=== PATIENT | female | born 1985 | race Caucasian/White ===

== ENCOUNTER 2025-03-20 09:44 | Emergency (ER) | payer BC ==
--- OUTSIDE RECORDS SUMMARY | 2025-03-20 09:48 | XMS REPORT | Continuity of Care Document ---
Author Name Unknown Address [address] [place] [address] Organization [facility] Address [address] [place] [address] Care Team Providers Care A/C Technician Name Role Phone NITO BARON Attending Clinician Unava ilable Payers Payer Name Policy Type Policy Number Effective Date Expirati on Date Source [place] [id number] 2021 00:00:00 Encounters Start Date/Time End Date/Time Encounter Type Admission Type Attending Clinicians Care Facility Care Department Encounter ID Source 2023-03-10 00:10:03 Outpatient [facility] [id number] [facility] 2024-11-15 04:06:00 2024-11-15 04:06:00 Emergency [facility] [id number] [facility] 2022-09-28 11:26:00 2022-09-29 20:48:00 Emergency E NITO BARON [facility] [id number] [facility]
[2025-03-20] MEDS ORDERED: LORazepam 2 MG/ML VIAL ONE (10:20)
[2025-03-20] MEDS ORDERED: DIPHENHYDRAMINE 50 MG/ML VIAL ONE ×2 (10:20→11:42)
[2025-03-20] MEDS ORDERED: HALOPERIDOL LACT 5 MG/ML INJ ONE (12:20)
--- NOTE | 2025-03-20 13:24 | EDPHYS ---
Physician Documentation [facility] Name: Maki Taylor Age: 39 yrs Sex: Female : 1985 Arrival Date: 03/20/2025 Time: 09:44 Bed 20 Private MD: ED Physician Arias Rios HPI: 03/20 10:17 This 39 yrs old Female presents to ER via Unassigned with complaints of Psych Problem - rn Not sleeping. 10:17 The patient presents to the emergency department with anxiety, Manic episode. Onset: rn The symptoms/episode began/occurred 2 day(s) ago. Spouse and patient report not sleeping for 2 days. He feels that there is a manic episode happening. Patient with bipolar and depression. Is compliant with her medication. He states that sometimes she gets like this and gets medication in the ER to help her sleep and when she wakes up she resets. Denies any suicidal or homicidal ideation. No fever or chills. No medical complaints otherwise.. 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 - Infectious Disease History:: Denies. - Family history:: not pertinent. - Social history:: Smoking status: Reported history of juuling and/or vaping. - Hospitalizations: : No recent hospitalization is reported. ROS: 10:17 Constitutional: Negative for fever, chills, and weight loss, Cardiovascular: Negative rn for chest pain, palpitations, and edema, Respiratory: Negative for shortness of breath, cough, wheezing, and pleuritic chest pain, Abdomen/GI: Negative for abdominal pain, nausea, vomiting, diarrhea, and constipation, MS/Extremity: Negative for injury and deformity, Skin: Negative for injury, rash, and discoloration, Neuro: Negative for headache, weakness, numbness, tingling, and seizure, Psych: Positive for anxiety and inability to sleep. Negative for suicidal ideation or homicidal ideation Exam: 10:17 Constitutional: This is a well developed, well nourished patient who is awake, alert, rn appears anxious and is hyperventilating Respiratory: Mild tachypnea, appears anxious and hyperventilating Neuro: Awake and alert, GCS 15 Vital Signs: 09:53 BP 195 / 128; Pulse 100; Resp 24 S; Temp 98(TE); Pulse Ox 98% on R/A; Weight 149.69 kg aa5 (R); Height 5 ft. 5 in. (R); 10:42 Pulse 104; Resp 16 S; Pulse Ox 99% on R/A; aa5 11:12 BP 162 / 115; Pulse 102; Resp 16 S; Pulse Ox 99% on R/A; aa5 13:00 BP 157 / 102; Pulse 99; Resp 16; Pulse Ox 100% ; me1 13:48 BP 148 / 101; Pulse 100; Resp 17; Temp 98.4; Pulse Ox 100% ; me1 09:53 Body Mass Index 54.91 (149.69 kg, 165.1 cm) aa5 MDM: 09:56 Medical Screening Exam initiated rn 13:22 Differential diagnosis: depression, Manic episode, anxiety. Data reviewed: vital signs, rn nurses notes, and as a result, I will discharge patient. Counseling: I had a detailed discussion with the patient and/or guardian regarding the historical points, exam findings, and any diagnostic results supporting the discharge/admit diagnosis, the need for outpatient follow up, to return to the emergency department if symptoms worsen or persist or if there are any questions or concerns that arise at home. Response to treatment: the patient's symptoms have markedly improved after treatment, Patient sleeping, has been as happy with her current state and would like to take her home to rest. Will make a follow-up appointment with psychiatrist, and as a result, I will discharge patient. Special discussion: I discussed with the patient/guardian in detail that at this point there is no indication for admission to the hospital. It is understood, however, that if the symptoms persist or worsen the patient needs to return immediately for re-evaluation. 03/20 10:05 Order name: IV Start; Complete Time: : rn Administered Medications: 10:20 Drug: Ativan IVP 1 mg IVP once Route: IVP; Site: right hand; aa5 10:41 Follow up: Response: No adverse reaction aa5 10:20 Drug: diphenhydrAMINE IVP 25 mg IVP once Route: IVP; Site: right hand; aa5 10:40 Follow up: Response: No adverse reaction aa5 10:53 Drug: Ativan IVP 1 mg IVP once Route: IVP; Site: right hand; aa5 11:00 Follow up: Response: No adverse reaction aa5 11:51 Drug: diphenhydrAMINE IVP 25 mg IVP once Route: IVP; Site: right hand; aa5 12:00 Follow up: Response: No adverse reaction aa5 12:23 Drug: Haloperidol IVP 2.5 mg IVP once Route: IVP; Site: right hand; me1 13:50 Follow up: Response: No adverse reaction; Marked relief of symptoms; Anxiety decreased me1 Disposition Summary: 03/20/25 13:23 Discharge Ordered Notes: Location: Home rn Problem: new rn Symptoms: have improved rn Condition: Stable rn Diagnosis - Bipolar disorder, unspecified rn - Insomnia rn Followup: rn - With: Private Physician - When: As needed - Reason: Recheck today's complaints, Re-evaluation by your physician Discharge Instructions: - Discharge Summary Sheet rn - Natalie rn - Managing Bipolar Disorder rn Forms: - Medication Reconciliation Form rn - Antibiotic consumer attorney - Prescription Opioid Use rn - Patient Portal Instructions rn - Leadership Thank You Letter rn Signatures: Arias Rios MD MD rn Calderon, Audri RN RN aa5 Janis Holt RN RN or1
--- NOTE | 2025-03-20 13:24 | ER ---
Nurse's Notes [facility] Name: Maki Taylor Age: 39 yrs Sex: Female : 1985 Arrival Date: 03/20/2025 Time: 09:44 Bed 20 Private MD: Diagnosis: Bipolar disorder, unspecified;Insomnia Presentation: 03/20 09:53 Acuity: BEATRIS 2 aa5 09:53 Risk Assessment: Do you want to hurt yourself or someone else? Patient reports no aa5 desire to harm self or others. 09:53 Chief complaint: Patient states: "I am having a mental day, I am not sleeping". aa5 09:53 Coronavirus screen: At this time, the client does not indicate any symptoms associated aa5 with coronavirus-19. Ebola Screen: Patient denies travel to an Ebola-affected area in the 21 days before illness onset. Initial Sepsis Screen: Does the patient meet any 2 criteria? HR > 90 bpm. Does the patient have a suspected source of infection? No. Patient's initial sepsis screen is negative. Onset of symptoms was March 17, 2025. 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 - Infectious Disease History:: Denies. - Family history:: not pertinent. - Social history:: Smoking status: Reported history of juuling and/or vaping. - Hospitalizations: : No recent hospitalization is reported. Screenin:53 [facility] ED Fall Risk Assessment (Adult) History of falling in the last 3 months, aa5 including since admission No falls in past 3 months (0 pts) Confusion or Disorientation No (0 pts) Intoxicated or Sedated No (0 pts) Impaired Gait No (0 pts) Mobility Assist Device Used No (0 pt) Altered Elimination No (0 pt) Score/Fall Risk Level 0 - 2 = Low Risk Oriented to surroundings, Maintained a safe environment, Educated pt \\T\\ family on fall prevention, incl call for assistance when getting out of bed, Assessed \\T\\ reinforced patient's understanding of fall precautions. Abuse screen: Denies threats or abuse. Nutritional screening: No deficits noted. Tuberculosis screening: No symptoms or risk factors identified. Assessment: 09:53 General: Appears uncomfortable, Behavior is anxious, Pt's states "she has aa5 periods like this where she doesn't sleep and she needs help sleeping". Pt reports not sleeping, pt states "I don't remember the last time I slept", pt's states "she slept a couple of hours the night before last" . Pain: Denies pain. Neuro: Level of Consciousness is awake, alert, obeys commands, Oriented to person, place, time, situation. Cardiovascular: Patient's skin is warm and dry. Respiratory: Airway is patent Respiratory effort is even, unlabored, Respiratory pattern is regular, symmetrical. GI: No signs and/or symptoms were reported involving the gastrointestinal system. : No signs and/or symptoms were reported regarding the genitourinary system. EENT: No signs and/or symptoms were reported regarding the EENT system. Derm: Skin is pink, warm \\T\\ dry. Musculoskeletal: Range of motion: intact in all extremities. 10:41 Reassessment: Pt appears calm now, pt states "I think it's helping me sleep now". . aa5 10:53 Reassessment: Patient is alert, oriented x 3, equal unlabored respirations, skin aa5 warm/dry/pink. Pt appears calm, remains awake, pt requesting more medication, MD was notified.. Vital Signs: 09:53 BP 195 / 128; Pulse 100; Resp 24 S; Temp 98(TE); Pulse Ox 98% on R/A; Weight 149.69 kg aa5 (R); Height 5 ft. 5 in. (R); 10:42 Pulse 104; Resp 16 S; Pulse Ox 99% on R/A; aa5 11:12 BP 162 / 115; Pulse 102; Resp 16 S; Pulse Ox 99% on R/A; aa5 13:00 BP 157 / 102; Pulse 99; Resp 16; Pulse Ox 100% ; me1 13:48 BP 148 / 101; Pulse 100; Resp 17; Temp 98.4; Pulse Ox 100% ; me1 09:53 Body Mass Index 54.91 (149.69 kg, 165.1 cm) aa5 ED Course: 09:51 Patient arrived in ED. cj3 09:53 Patient has correct armband on for positive identification. Bed in low position. Call aa5 light in reach. Side rails up X2. Adult w/ patient. Pulse ox on. NIBP on. 09:53 Arm band placed on. aa5 09:56 Arias Rios MD is Attending Physician. rn 09:56 N[facility] Diaz F[facility]-C [facility] kb 09:57 Susy Washburn, JOSEF is Primary Nurse. aa5 10:12 Triage completed. aa5 10:18 Inserted saline lock: 20 gauge in right hand, using aseptic technique. Flushed with 10 aa5 mL NS. 10:45 No provider procedures requiring assistance completed. aa5 12:00 Report given to JOSEF Bruce. aa5 13:48 IV discontinued, intact, bleeding controlled, No redness/swelling at site. Pressure me1 dressing applied. 13:48 Provided Education on: POC. Verbalized understanding.. me1 Administered Medications: 10:20 Drug: Ativan IVP 1 mg IVP once Route: IVP; Site: right hand; aa5 10:41 Follow up: Response: No adverse reaction aa5 10:20 Drug: diphenhydrAMINE IVP 25 mg IVP once Route: IVP; Site: right hand; aa5 10:40 Follow up: Response: No adverse reaction aa5 10:53 Drug: Ativan IVP 1 mg IVP once Route: IVP; Site: right hand; aa5 11:00 Follow up: Response: No adverse reaction aa5 11:51 Drug: diphenhydrAMINE IVP 25 mg IVP once Route: IVP; Site: right hand; aa5 12:00 Follow up: Response: No adverse reaction aa5 12:23 Drug: Haloperidol IVP 2.5 mg IVP once Route: IVP; Site: right hand; me1 13:50 Follow up: Response: No adverse reaction; Marked relief of symptoms; Anxiety decreased me1 Medication: 10:43 VIS not applicable for this client. aa5 Outcome: 13:23 Discharge ordered by . rn 13:48 Discharged to home via wheelchair, with significant other, me1 13:48 Condition: stable 13:48 Discharge instructions given to patient, significant other, Instructed on discharge instructions, follow up and referral plans. Demonstrated understanding of instructions, follow-up care, 13:50 Patient left the ED. me1 Signatures: Nelia Diaz, APARTMENT MANAGER-C APARTMENT MANAGER-Ckb Arias Rios MD MD rn Calderon, Susy RN RN aa5 Janis Holt RN RN me1 Janene Rizo cj3 Corrections: (The following items were deleted from the chart) 11:05 10:55 Reassessment: Patient is alert, oriented x 3, equal unlabored respirations, skin aa5 warm/dry/pink. Pt appears calm, remains awake, pt requesting more medication, MD was notified.. aa5
[2025-03-22 17:59] VITALS: O2SAT 100
[2025-03-22 18:01] VITALS: BP 148/101; TEMP 98.4
== END 2025-03-20 13:50 | disposition home or self-care (01) ==
LOC: EDBD 09:44 → ER 09:44
DX: F31.9 Bipolar disorder, unspecified (principal)
CPT/HCPCS: 96375; 96374; 99284; J1630; J1200 ×2

== ENCOUNTER 2025-03-21 09:24 | Emergency (ER) | payer BC ==
--- NOTE | 2025-03-21 09:45 | EDPHYS ---
Physician Documentation [facility] Name: Maki Taylor Age: 39 yrs Sex: Female : 1985 Arrival Date: 03/21/2025 Time: 09:24 Bed 13 Private MD: JESSICA Physician Calixto Londono HPI: 03/21 09:35 This 39 yrs old Female presents to ER via Ambulatory with complaints of Psych Problem- kb Not Sleeping. 09:35 Pt is a 39 year old female who presents for insomnia. Spouse states pt hasn't really kb slept in 3 days. States they were here yesterday and she was given benadryl and ativan which didn't help, then was given Haldol which allowed her to sleep for 2-3 hours, but then she was back up and couldn't get back to sleep. states her cousin moved and he believes that is what triggered this episode. This has happened a few times in the past and normally she "resets" after getting 8-9 hours of sleep. Pt is a patient of [facility] and the plan is to call them first thing in the morning. Came here because they aren't open during the weekend. Denies homicidal or suicidal ideations. 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 - Social history:: Smoking status: Reported history of juuling and/or vaping. ROS: 09:35 Constitutional: As per HPI kb Exam: 09:35 Constitutional: This is a well developed, well nourished patient who is awake, alert, kb and in no acute distress. Head/Face: Normocephalic, atraumatic. ENT: Moist Mucous membranes Cardiovascular: Regular rate Respiratory: Respirations even and unlabored. No increased work of breathing. Talking in full sentences Skin: Warm, dry with normal turgor. Normal color. MS/ Extremity: Pulses equal, no cyanosis. Neurovascular intact. Full, normal range of motion. Neuro: Awake and alert, GCS 15, oriented to person, place, time, and situation. Vital Signs: 09:31 BP 165 / 118; Pulse 108; Resp 17; Temp 98.9; Pulse Ox 98% ; Pain 0/10; ss 09:33 Weight 149.69 kg; Height 5 ft. 5 in. ; ss 09:33 Body Mass Index 54.91 (149.69 kg, 165.1 cm) ss 09:31 Pain Scale: Adult ss MDM: 09:27 Medical Screening Exam initiated kb 09:43 Data reviewed: vital signs, nurses notes. kb 09:43 Differential diagnosis: psychosis, insomnia, anxiety. Management of patient was kb discussed with the following: Dr Londono, recommends ativan 2mg and geodon 20mg PO, discharge home to sleep. Discussed with pt and spouse, both in agreement with plan. Historians other than the Patient: Spouse/Significant Other: spouse. Counseling: I had a detailed discussion with the patient and/or guardian regarding the historical points, exam findings, and any diagnostic results supporting the discharge/admit diagnosis, the need for outpatient follow up, a psychiatrist, to return to the emergency department if symptoms worsen or persist or if there are any questions or concerns that arise at home. Administered Medications: 09:58 Drug: LORazepam PO 2 mg PO once Route: PO; iw 10:22 Drug: Geodon 20 mg PO once; give with food (meal/snack) Route: PO; iw Disposition Summary: 03/21/25 09:44 Discharge Ordered Notes: Location: Home kb Condition: Stable kb Diagnosis - Insomnia due to other mental disorder kb Followup: kb - With: Emergency Department - When: As needed - Reason: Worsening of condition Followup: kb - With: Private Physician - When: 2 - 3 days - Reason: Recheck today's complaints, Continuance of care, Re-evaluation by your physician Discharge Instructions: - Discharge Summary Sheet kb - Insomnia kb Forms: - Medication Reconciliation Form kb - Antibiotic Education kb - Prescription Opioid Use kb - Patient Portal Instructions kb - Leadership Thank You Letter kb Signatures: Nelia Diaz FNP-C FRANCISCO-Kindra Pichardo, JOSEF RN iw Kailey Latham RN RN ss Corrections: (The following items were deleted from the chart) 09:52 09:43 Management of patient was discussed with the following: Dr Londono, recommends kb ativan 2mg and geodon 20mg PO, discharge home to sleep. kb 09:54 09:35 Pt is a 39 year old female who presents for insomnia. Spouse states pt hasn't kb really slept in 3 days. States they were here yesterday and she was given benadryl and ativan which didn't help, then was given Haldol which allowed her to sleep for 2-3 hours, but then she was back up and couldn't get back to sleep. states her cousin moved and he believes that is what triggered this episode. This has happened a few times in the past and normally she "resets" after getting 8-9 hours of sleep. Pt is a patient of [facility] and the plan is to call them first thing in the morning. Came here because they aren't open during the weekend. . kb
--- NOTE | 2025-03-21 09:45 | ER ---
Nurse's Notes [facility] Name: Maki Taylor Age: 39 yrs Sex: Female : 1985 Arrival Date: 03/21/2025 Time: 09:24 Bed 13 Private MD: Diagnosis: Insomnia due to other mental disorder Presentation: 03/21 09:31 Chief complaint: Spouse and/or significant other states: "She just isn't sleeping. We ss were here last night for the same thing. It helped after they gave her Haldol, but didn't sleep very long.". Coronavirus screen: Client denies travel out of the [place] in the last 14 days. Ebola Screen: Patient denies exposure to infectious person. Patient denies travel to an Ebola-affected area in the 21 days before illness onset. Initial Sepsis Screen: Does the patient meet any 2 criteria? No. Patient's initial sepsis screen is negative. Does the patient have a suspected source of infection? No. Patient's initial sepsis screen is negative. Risk Assessment: Do you want to hurt yourself or someone else? Patient reports no desire to harm self or others. Onset of symptoms was March 18, 2025. 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 - Social history:: Smoking status: Reported history of juuling and/or vaping. Screenin:38 Abuse screen: Denies threats or abuse. Denies injuries from another. Nutritional ss screening: No deficits noted. Tuberculosis screening: Never had TB. 10:22 [facility] ED Fall Risk Assessment (Adult) History of falling in the last 3 months, iw including since admission No falls in past 3 months (0 pts) Confusion or Disorientation No (0 pts) Intoxicated or Sedated No (0 pts) Impaired Gait No (0 pts) Mobility Assist Device Used No (0 pt) Altered Elimination No (0 pt) Score/Fall Risk Level 0 - 2 = Low Risk Oriented to surroundings, Maintained a safe environment. Assessment: 09:38 Reassessment: states, "This has happened before and after 8-9 hours of sleep, ss she wakes up and snaps out of it.". Vital Signs: 09:31 BP 165 / 118; Pulse 108; Resp 17; Temp 98.9; Pulse Ox 98% ; Pain 0/10; ss 09:33 Weight 149.69 kg; Height 5 ft. 5 in. ; ss 09:33 Body Mass Index 54.91 (149.69 kg, 165.1 cm) ss 09:31 Pain Scale: Adult ss ED Course: 09:27 Patient arrived in ED. cj3 09:27 Nelia Diaz FNP-C [facility]. kb 09:27 Calixto Londono MD is Attending Physician. kb 09:33 Triage completed. ss 09:33 Arm band placed on right wrist. ss 09:38 Patient has correct armband on for positive identification. ss 09:45 Kindra Bernabe, RN is Primary Nurse. iw Administered Medications: 09:58 Drug: LORazepam PO 2 mg PO once Route: PO; iw 10:22 Drug: Geodon 20 mg PO once; give with food (meal/snack) Route: PO; iw Medication: 09:38 VIS not applicable for this client. ss Outcome: 09:44 Discharge ordered by . kb 10:22 Discharged to home ambulatory, with family, iw 10:22 Condition: good 10:22 Discharge instructions given to patient, family, Instructed on discharge instructions, follow up and referral plans. Demonstrated understanding of instructions, follow-up care, 10:23 Patient left the ED. iw Signatures: Nelia Diaz FNP-C FNP-Kindra Pichardo, RN RN Kailey Latham RN RN Janene Rizo cj3
[2025-03-21] MEDS ORDERED: LORAZEPAM 1 MG TABLET ONE (09:52)
[2025-03-21] MEDS ORDERED: ZIPRASIDONE 20 MG CAP PO ONE (10:00)
[2025-03-23 03:18] VITALS: BP 165/118; TEMP 98.9; O2SAT 98
== END 2025-03-21 10:23 | disposition home or self-care (01) ==
LOC: ER 09:24
DX: F51.05 Insomnia due to other mental disorder (principal)
CPT/HCPCS: 99283

== ENCOUNTER 2025-03-21 17:10 | Emergency (ER) | payer BC ==
--- NOTE | 2025-03-21 18:07 | ER ---
Nurse's Notes [facility] Name: Maki Taylor Age: 39 yrs Sex: Female : 1985 Arrival Date: 03/21/2025 Time: 17:10 Bed 10 Private MD: Diagnosis: Manic episode Presentation: 03/21 17:44 Chief complaint: Patient states: manic state since . Has come several times for mi1 something to help her sleep but when she gets home she is unable to go back to sleep. Crying in triage. Coronavirus screen: Vaccine status: Patient reports receiving the 2nd dose of the covid vaccine. Ebola Screen: No symptoms or risks identified at this time. Initial Sepsis Screen: Does the patient meet any 2 criteria? HR > 90 bpm. No. Patient's initial sepsis screen is negative. Does the patient have a suspected source of infection? No. Patient's initial sepsis screen is negative. Risk Assessment: Do you want to hurt yourself or someone else? Patient reports no desire to harm self or others. Onset of symptoms was March 18, 2025. 17:44 Method Of [place] [facility] [place] Acuity: BEATRIS 4 me1 Triage Assessment: 19:50 General: Appears comfortable, Behavior is cooperative, anxious. Pain: Denies pain. ha1 Neuro: Level of Consciousness is awake, alert, obeys commands, Oriented to person, place, time, situation, Reports NOT ABLE TO SLEEP FOR FOUR DAYS . Cardiovascular: Capillary refill < 3 seconds Patient's skin is warm and dry. Respiratory: Airway is patent Respiratory effort is even, unlabored, Respiratory pattern is regular, symmetrical. GI: No signs and/or symptoms were reported involving the gastrointestinal system. Abdomen is round non-distended, obese. : No signs and/or symptoms were reported regarding the genitourinary system. Derm: No signs and/or symptoms reported regarding the dermatologic system. Skin is pink, warm \\T\\ dry. Musculoskeletal: Circulation, motion, and sensation intact. Range of motion: intact in all extremities. 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 - Infectious Disease History:: Denies. - Social history:: Smoking status: Reported history of juuling and/or vaping. Screenin:40 [facility] ED Fall Risk Assessment (Adult) History of falling in the last 3 months, ha1 including since admission No falls in past 3 months (0 pts) Confusion or Disorientation No (0 pts) Intoxicated or Sedated No (0 pts) Impaired Gait No (0 pts) Mobility Assist Device Used No (0 pt) Altered Elimination No (0 pt) Score/Fall Risk Level 0 - 2 = Low Risk Oriented to surroundings, Maintained a safe environment, Educated pt \\T\\ family on fall prevention, incl call for assistance when getting out of bed, Hourly rounding (assess needs \\T\\ fall precautionary measures) done. Abuse screen: Denies threats or abuse. Denies injuries from another. Nutritional screening: No deficits noted. Tuberculosis screening: No symptoms or risk factors identified. Assessment: 19:45 Reassessment: SEE TRIAGE ASSESSMENT. ha1 21:10 General: Appears uncomfortable, Behavior is anxious, restless. ha1 22:00 Reassessment: Patient and/or family updated on plan of care and expected duration. Pain ha1 level reassessed. 23:00 Reassessment: Patient and/or family updated on plan of care and expected duration. Pain ha1 level reassessed. 03/22 00:00 Reassessment: Patient and/or family updated on plan of care and expected duration. Pain ha1 level reassessed. Patient is alert, oriented x 3, equal unlabored respirations, skin warm/dry/pink. 03:00 Reassessment: eyes closed. Respiratory: Airway is patent Respiratory effort is even, ha1 unlabored, Respiratory pattern is regular, symmetrical. 04:20 Reassessment: eyes closed. Respiratory: Airway is patent Respiratory effort is even, ha1 unlabored, Respiratory pattern is regular, symmetrical. 05:10 Reassessment: PATIENT STATES " I FEEL BETTER AFTER SLEEPING, I WANT TO GO HOME ". ha1 05:20 Reassessment: AWAKE REQUESTING TO BE DISCHARGE. DENIES SUICIDAL IDEATIONS. ha1 05:40 General: PROVIDED EDUCATION ON PENDING TRANSFER . ha1 Vital Signs: 03/21 17:44 BP 166 / 102; Pulse 117; Resp 19; Temp 98.4; Pulse Ox 99% ; Weight 149.69 kg; Height 5 me1 ft. 5 in. ; Pain 0/10; 18:24 BP 158 / 92; Pulse 108; Resp 20; Temp 98.4; Pulse Ox 99% ; dr5 03/22 00:00 BP 149 / 88; Pulse 86; Resp 17 S; Pulse Ox 99% on R/A; ha1 04:00 BP 155 / 82; Pulse 87; Resp 18 S; Pulse Ox 100% on R/A; ha1 05:20 BP 147 / 84; Pulse 91; Resp 18 S; Temp 98.7(T); Pulse Ox 99% on R/A; ha1 03/21 17:44 Body Mass Index 54.91 (149.69 kg, 165.1 cm) me1 03/21 17:44 Pain Scale: Adult mi1 ED Course: 03/21 17:15 Patient arrived in ED. cj3 17:19 [facility]C [facility] 17:19 Calixto Londono MD is Attending Physician. dr5 17:48 Triage completed. me1 17:48 Arm band placed on Patient placed in waiting room. me1 18:07 [facility] and justine Haywood in [facility] to find placement. 18:11 connected Deandra from [facility] with Ulysses for patient nurse to nurse. eb 18:16 administrative approval given by Madeleine Rhodes/ patient has been accepted to [facility]/ Dr. Adriel Wheat has accepted the patient in transfer without conference with Ulysses Priest/ patient not to be transferred till 0600/ pt is aware and is okay to wait till 0600 03/22/2025. 20:00 Patient has correct armband on for positive identification. Bed in low position. Call ha1 light in reach. Side rails up X 1. 23:00 Inserted saline lock: 22 gauge in left antecubital area, using aseptic technique. Blood ha1 collected. 03/22 05:16 Attending Physician role handed off by Calixto Londono MD rt 05:16 Manjit Lazcano MD is Attending Physician. rt 05:29 No provider procedures requiring assistance completed. IV discontinued, intact, ha1 bleeding controlled, No redness/swelling at site. Pressure dressing applied. 05:40 Provided Education on: FOLLOW UPS . ha1 Administered Medications: 03/21 21:27 Drug: Geodon IM 10 mg IM once Route: IM; Site: right deltoid; ha1 03/22 00:00 Drug: Haloperidol IVP 2.5 mg IVP once Route: IVP; Site: left antecubital; ha1 02:04 Drug: Haloperidol IVP 5 mg IVP once Route: IVP; Site: left antecubital; cp4 Medication: 05:40 VIS not applicable for this client. ha1 Outcome: 03/21 18:06 ER care complete, transfer ordered by . dr5 03/22 05:17 Discharge ordered by MD. rt 05:39 Discharged to home ambulatory, with family, ha1 05:39 Condition: stable 05:39 Discharge instructions given to patient, Instructed on discharge instructions, follow up and referral plans. Demonstrated understanding of instructions, follow-up care, 05:41 Patient left the ED. 1 Signatures: Maria T Arguelles Heidy RN RN ha1 Manjit Lazcano MD MD rt Janis Holt RN RN mi1 Marleny Estrada cp4 Ulysses Guajardo, RADIOLOGY SPECIALIST-C RADIOLOGY SPECIALIST-Cdr5 Janene Rizo cj3 Corrections: (The following items were deleted from the chart) 05:24 03/21 21:50 General: Appears uncomfortable, Behavior is anxious, restless, ha1 ha1
--- NOTE | 2025-03-21 18:07 | EDPHYS ---
Physician Documentation [facility] Name: Maki Taylor Age: 39 yrs Sex: Female : 1985 Arrival Date: 03/21/2025 Time: 17:10 Bed 10 Private MD: ED Physician Manjit Lazcano HPI: 03/21 18:01 This 39 yrs old Female presents to ER via Ambulatory with complaints of Psych dr5 Problem- Not Sleeping. 18:01 Onset: The symptoms/episode began/occurred acutely. Patient is a 39-year-old female dr5 with history of anxiety, bipolar disorder, manic and depression coming in with inability to sleep for the past 2 days. Patient has been seen in the ER a total of 3 times with multiple attempts at helping patient sleep. Patient reports having slept about an hour over the last 2 to 3 days. Patient is visibly uncomfortable. Patient denies suicidal or homicidal ideation at this time. Patient does endorse hearing voices in her head that are talking to her. and mother at bedside states that this has happened 2 times since she has been 15 years old and reports that after she is hospitalized at the psychiatric facility that they are able to calm her down and normalize her thoughts.. 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 - Infectious Disease History:: Denies. - Social history:: Smoking status: Reported history of juuling and/or vaping. ROS: 18:01 Constitutional: as per hpi dr5 Exam: 18:01 Constitutional: This is a well developed, well nourished patient who is awake, alert, dr5 and in no acute distress. Head/Face: Normocephalic, atraumatic. ENT: Nares patent. No nasal discharge, no septal abnormalities noted. Tympanic membranes are normal and external auditory canals are clear. Oropharynx with no redness, swelling, or masses, exudates, or evidence of obstruction, uvula midline. Mucous membranes moist. Neck: Trachea midline, no thyromegaly or masses palpated, and no cervical lymphadenopathy. Supple, full range of motion without nuchal rigidity, or vertebral point tenderness. No Meningismus. Chest/axilla: Normal chest wall appearance and motion. Nontender with no deformity. No lesions are appreciated. Cardiovascular: Regular rate and rhythm with a normal S1 and S2. Normal PMI, no JVD. No pulse deficits. Respiratory: Lungs have equal breath sounds bilaterally, clear to auscultation. No rales, rhonchi or wheezes noted. No increased work of breathing, no retractions or nasal flaring. Back: No spinal tenderness. No costovertebral tenderness. Full range of motion. Skin: Warm, dry with normal turgor. Normal color with no rashes, no lesions, and no evidence of cellulitis. Neuro: Awake and alert, GCS 15, oriented to person, place, time, and situation. Cranial nerves II-XII grossly intact. Motor strength 5/5 in all extremities. Sensory grossly intact. Cerebellar exam normal. Normal gait. Psych: Patient is awake, alert. Patient is agitated and looks uncomfortable. Patient is muttering and talking to self in triage room. Patient expresses want to go to psychiatric facility for help. Vital Signs: 17:44 BP 166 / 102; Pulse 117; Resp 19; Temp 98.4; Pulse Ox 99% ; Weight 149.69 kg; Height 5 me1 ft. 5 in. ; Pain 0/10; 18:24 BP 158 / 92; Pulse 108; Resp 20; Temp 98.4; Pulse Ox 99% ; dr5 03/22 00:00 BP 149 / 88; Pulse 86; Resp 17 S; Pulse Ox 99% on R/A; ha1 04:00 BP 155 / 82; Pulse 87; Resp 18 S; Pulse Ox 100% on R/A; ha1 05:20 BP 147 / 84; Pulse 91; Resp 18 S; Temp 98.7(T); Pulse Ox 99% on R/A; ha1 03/21 17:44 Body Mass Index 54.91 (149.69 kg, 165.1 cm) pa1 03/21 17:44 Pain Scale: Adult [facility] [place] MDM: 03/21 17:19 Medical Screening Exam initiated dr5 18:01 Differential diagnosis: Manic, Depression, Bipolar Disorder, Anxiety. Data reviewed: dr5 vital signs, nurses notes. I considered the following discharge prescriptions or medication management in the emergency department Medications were administered in the Emergency Department. See MAR. Care significantly affected by the following chronic conditions: Anxiety, Depression, Melanie, Bipolar. Care significantly affected by the following Social Determinants of Health: Poor access to healthcare and/or lack of insurance, Poor access to transportation, Problems related to employment. Counseling: I had a detailed discussion with the patient and/or guardian regarding the historical points, exam findings, and any diagnostic results supporting the discharge/admit diagnosis, the presence of at least one elevated blood pressure reading (>120/80) during this emergency department visit, the need to transfer to another facility, for higher level of care, [facility] does not immediately have the required specialist, We do not have psychiatric capabilities at [facility].. ED course: Will transfer patient to psychiatric facility for further management and aid in managing melanie and internal thoughts.. 18:36 ED course: Report given to JOSEF Mcbride by me. Received acceptance with bed being dr5 available tomorrow morning at 0600. Spoke with patient, Mother, and who are all agreeable to plan to stay in ER through night and be transferred in the morning.. 03/21 17:56 Order name: Acetaminophen; Complete Time: 00:03/21 17:56 Order name: Basic Metabolic Panel; Complete Time: 00:03/21 17:56 Order name: CBC with Diff; Complete Time: 00:03/21 17:56 Order name: ETOH Level; Complete Time: 00:03/21 17:56 Order name: Hepatic Function; Complete Time: 00:03/21 17:56 Order name: PT-INR; Complete Time: 00:03/21 17:56 Order name: Ptt, Activated; Complete Time: 00:03/21 17:56 Order name: Salicylate; Complete Time: 00:03/21 17:56 Order name: EKG; Complete Time: 17:03/21 17:56 Order name: IV Saline Lock; Complete Time: 00:54 03/21 17:56 Order name: Labs collected and sent; Complete Time: 00:54 [facility] 03/21 17:56 Order name: Suicide Screening ([place]); Complete Time: 00:54 dr5 Administered Medications: 21:27 Drug: Geodon IM 10 mg IM once Route: IM; Site: right deltoid; ha1 03/22 00:00 Drug: Haloperidol IVP 2.5 mg IVP once Route: IVP; Site: left antecubital; ha1 02:04 Drug: Haloperidol IVP 5 mg IVP once Route: IVP; Site: left antecubital; cp4 Disposition: 06:57 Co-signature as Attending Physician, Manjit Lazcano MD I reviewed the patient's care rt provided by the Advanced Practice Provider and agree with the diagnosis and treatment plan. Disposition Summary: 03/22/25 05:17 Discharge Ordered Notes: Location: Home rt Problem: new(03/22/25 05:17) rt Symptoms: have improved(03/22/25 05:17) rt Condition: Stable(03/22/25 05:17) rt Diagnosis - Manic episode rt Followup: rt - With: Private Physician - When: 2 - 3 days - Reason: Discharge Instructions: - Discharge Summary Sheet rt - Melanie rt Forms: - Medication Reconciliation Form rt - Antibiotic Education rt - Prescription Opioid Use rt - Patient Portal Instructions rt - Leadership Thank You Letter rt Signatures: Dispatcher [employer] Yuni Amaya RN RN ha1 Manjit Lazcano MD MD rt Janis Holt RN RN pa1 Marleny Estrada cp4 Ulysses Guajardo, FRANCISCO-C FISHING TOOL SUPERVISOR-Cdr5 Corrections: (The following items were deleted from the chart) 03/21 18:37 18:06 Psychiatric Facility dr5 dr5 03/22 05:03/21 18:06 Psych Facility dr5 rt 03/22 05:03/21 18:06 Higher level of care dr5 rt 03/22 05:16 03/21 18:[address]able dr5 rt 03/22 05:03/21 18:[address] dr5 rt 03/22 05:16 03/21 18:06 are unchanged dr5 rt 03/22 05:16 03/21 18:06 Manic episode, unspecified dr5 rt 03/22 05:16 03/21 18:[address] Adriel Wheat dr5 rt
[2025-03-21] MEDS ORDERED: ZIPRASIDONE MESYLA 20 MG/VIAL IM ONE (21:15)
[2025-03-21] MEDS ORDERED: WATER FOR INJ,STERILE 10 ML ONE (21:15)
[2025-03-21] MEDS ORDERED: HALOPERIDOL LACT 5 MG/ML INJ ONE (23:38)
[2025-03-22 00:14] LABS: PT Prothrombin Time 12.4 SECONDS (10-13.0); PTT, Activated Partial Thromb 32.7 SECONDS (27.2-37.4); Protime INR 1.09
[2025-03-22 00:20] LABS: Absolute Basophils 0.1 K/uL (0-0.5); Absolute Eosinophils 0.1 K/uL (0-0.5); Absolute Lymphocytes (CBC) 3.5 K/uL (0.7-4.9); Absolute Monocytes 0.9 K/uL (0.1-1.3); Absolute Neutrophil 5.5 K/uL (1.8-8.0); Basophils % 0.6 % (0-1.3); Eosinophils % 1.1 % (0-4.4); Hematocrit 41.6 % (36.0-45.0); Hemoglobin 14.8 g/dL (12.0-15.0); MCH 29.9 pg (27.0-35.0); MCHC 35.7 g/dL (32.0-36.0); MCV 83.7 fL (80-100); MPV 6.9 fL (7.6-11.3); Monocytes % 8.7 % (3.3-12.3); Neutrophils % 54.6 % (41.7-73.7); Nucleated Red Blood Cells % 0.2 % (0-0); Platelets 281 thou/uL (152-406); RBC Red Blood Cell Count 4.96 M/uL (3.86-4.86); Red Cell Distribution Width 15.1 % (12.1-15.2)
[2025-03-22 00:22] LABS: ALT/SGPT 85 U/L (13-56); AST/SGOT 42 U/L (15-37); Albumin 4.2 g/dL (3.4-5.0); Albumin/Globulin Ratio 1.1 (1.1-1.8); Alkaline Phosphatase 56 U/L (45-117); Anion Gap 9.9 mEq/L (5.0-15.0); BUN Blood Urea Nitrogen 9 mg/dL (7-18); Bicarbonate 24 mEq/L (21-32); Bilirubin Direct 0.2 mg/dL (0-0.2); Bilirubin Indirect, Calculated 0.5 mg/dL (0.2-0.8); Bilirubin Total 0.7 mg/dL (0.2-1.0); Globulin 3.8 g/dL (2.3-3.5); Glomerular Filtration Rate 65 ml/min (=/>90); Glucose Level 172 mg/dL (74-106); Potassium 2.9 mEq/L (3.5-5.1); Sodium Level 137 mEq/L (136-145)
[2025-03-22] MEDS ORDERED: HALOPERIDOL LACT 5 MG/ML INJ ONE (02:01)
[2025-03-23 12:00] VITALS: BP 147/84; TEMP 98.7; O2SAT 99
== END 2025-03-22 05:41 | disposition home or self-care (01) ==
LOC: ER 17:10
DX: F30.9 Manic episode, unspecified (principal)
CPT/HCPCS: 85025; 80048; 36415; 85610; 80076; 85730; 96372; 96374; 99284; 80143; 80179; 82077; J1630 ×2; J3486